=== PATIENT | female | born 1950 | race Caucasian/White ===

== ENCOUNTER 2019-11-18 14:36 | Emergency (ER) | payer BC, MEDICARE, SELFPAY ==
--- NOTE | ~2019-11-18 | XR_ITS ---
EXAMINATION: XR wrist RT min 3V INDICATION: Right wrist pain TECHNIQUE: Four views of the right wrist are obtained. COMPARISON: 11/03/2011 FINDINGS: The bones are osteopenic which limits sensitivity for fracture however no acute fracture is seen. There is a chronic ulnar styloid avulsion. Bone alignment is normal. Calcified atherosclerosis is noted. IMPRESSION: 1. No acute osseous abnormality, sensitivity limited by osteopenia. Reviewed, dictated and finalized at location A.
[2019-11-18 14:55] VITALS: BP 140/51; PULSE 76; RESP 18; TEMP 36.9; O2SAT 99
--- NOTE | 2019-11-18 15:11 | ED.GENADULT ---
HPI - General Adult General Chief complaint: Extremity Injury, Upper Stated complaint: right wrist injury Time Seen by Provider: 11/18/19 15:11 Source: patient and old records reviewed Mode of arrival: ambulatory Limitations: no limitations History of Present Illness HPI narrative: This is a 68 years old female presents to the office for an evaluation of right wrist injury two morning ago . She accidentally tripped over a fedex box and landed on her knees and right wrist. Complains of pain especially with movenment and touching. She is right-hand dominant. Denies any previous bone injury or trauma to her wrist however she does have a fistula on her right upper arm for dialysis. Denies head injury or trauma. She has been taking Tylenol for pain. Related Data Home Medications Medication Instructions Recorded Confirmed amlodipine [Norvasc] 5 mg PO DAILY 11/18/19 11/18/19 atorvastatin [Lipitor] 40 mg PO DAILY 11/18/19 11/18/19 cholecalciferol (vitamin D3) 1,250 mcg DAILY 11/18/19 11/18/19 [D3-50 Cholecalciferol] fluticasone propion-salmeterol 2 puff INHALATION BID 11/18/19 11/18/19 [Advair HFA] furosemide [Lasix] 80 mg PO DAILY 11/18/19 11/18/19 metoprolol tartrate [Lopressor] 25 mg PO BID 11/18/19 11/18/19 montelukast [Singulair] 10 mg PO DAILY 11/18/19 11/18/19 sertraline [Zoloft] 150 mg PO HS 11/18/19 11/18/19 trazodone 50 mg PO HS 11/18/19 11/18/19 vit B comp no.6-[id number]-N-biotin 1 tablet PO DAILY 11/18/19 11/18/19 [[facility] Rx] warfarin [Coumadin] 5 mg PO DAILY 11/18/19 11/18/19 Allergies Allergy/AdvReac Type Severity Reaction Status Date / Time Cephalosporins Allergy Severe Other Verified 07/29/19 08:19 estrogens, conjugated Allergy Severe CARDIAC Verified 07/29/19 08:19 [From Premarin] ARREST povidone-iodine Allergy Severe itching Verified 07/29/19 08:19 and rash prednisolone Allergy Severe Swelling Verified 07/29/19 08:19 of Lip/Tongue/Throat prednisone Allergy Severe Swelling Verified 07/29/19 08:19 of Lip/Tongue/Throat soap Allergy Severe ITCHING Verified 07/29/19 08:19 strawberry Allergy Severe Hives Verified 07/29/19 08:19 sumatriptan Allergy Severe Headache Verified 07/29/19 08:19 levofloxacin Allergy Intermediate Itching Verified 07/29/19 08:19 metronidazole Allergy Intermediate Itching Verified 07/29/19 08:19 Review of Systems Review of Systems: Narrative: CONSTITUTIONAL: Denies fever, chills ENT: Denies congestion CARDIOVASCULAR: Denies chest pain RESPIRATORY: Denies cough GASTROINTESTINAL: Denies nausea, vomiting SKIN: Reports skin abrasion on her right knee; which has been keep it clean and applied topical antibiotic ointment. TD is unknown. 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 in resuming hemodialysis mid 2017 Cataracts, bilateral COPD (chronic obstructive pulmonary disease) With PFTs 2014 demonstrating severe obstructive disease with acute bronchodilator response and moderate decreased DLCO with continued tobacco abuse CVA (cerebral vascular accident) Left frontal lobe Diabetes mellitus Diet-controlled Diastolic HF (heart failure) With grade 3-4 diastolic dysfunction on most recent echocardiogram June 2018 Glaucoma History of GI bleed April 2015 requiring multiple units of blood transfusion with History of heart attack Most recent stress test 06/11/2019 no evidence of reversible ischemia History of kidney stones Hx of hiatal hernia Hypercholesteremia Hypertension IBS (irritable bowel syndrome) Ischemic cardiomyopathy With EF as low a
[2019-11-18] MEDS: TETANUS,DIPHTHERIA,AC PERTUSSIS ADULT (0.5 ML) BOOSTRIX IM (15:37)
== END 2019-11-18 16:03 | disposition home or self-care (01) ==
PROVIDERS: Emergency Provider Nurse Practitioner; PCP Emergency Medicine
DX: S69.91XA Unspecified injury of right wrist, hand and finger(s), initial encounter (principal); Z23 Encounter for immunization; J44.9 Chronic obstructive pulmonary disease, unspecified; I50.30 Unspecified diastolic (congestive) heart failure; E11.42 Type 2 diabetes mellitus with diabetic polyneuropathy; H40.9 Unspecified glaucoma; I25.2 Old myocardial infarction; E78.00 Pure hypercholesterolemia, unspecified; I11.0 Hypertensive heart disease with heart failure; K58.9 Irritable bowel syndrome, unspecified; I25.5 Ischemic cardiomyopathy; Z87.442 Personal history of urinary calculi; Z86.711 Personal history of pulmonary embolism; Z86.73 Personal history of transient ischemic attack (TIA), and cerebral infarction without residual deficits; F17.210 Nicotine dependence, cigarettes, uncomplicated; F41.9 Anxiety disorder, unspecified; Z98.42 Cataract extraction status, left eye; Z98.41 Cataract extraction status, right eye; Z95.1 Presence of aortocoronary bypass graft; I25.10 Atherosclerotic heart disease of native coronary artery without angina pectoris; Z79.01 Long term (current) use of anticoagulants; W18.09XA Striking against other object with subsequent fall, initial encounter
CPT/HCPCS: 73110; 90471; 90715; 99213; G0463

== ENCOUNTER → 2020-03-14 12:35 | Outpatient (CLI) | payer BC, MEDICARE, SELFPAY ==
--- NOTE | ~2020-03-14 | CT_ITS ---
EXAMINATION: CT soft tissue neck wo con EXAM DATE: 03/14/2020 13:48 INDICATION: Localized right neck mass, lump. TECHNIQUE: Spiral CT of the neck was performed without contrast. Axial, coronal and sagittal images were reviewed. The dose-length product (DLP) for this examination was 346.53 mGy-cm. The exposure was tailored according to patient size (auto mA exposure control), and iterative reconstruction (ASIR ) was used as additional dose reduction technique. There is no prior study for comparison. Correlati on was made with CT cervical spine . FINDINGS: There is an externally placed marker along the right anterolateral aspect of the neck. The right sternocleidomastoid is deep to this. Patient does have sizable submandibular glands but there i s no focal density abnormality or mass suspected. These were partially imaged in 2018 and do not appe ar significantly changed. The thyroid gland is unremarkable. There is no cervical lymphadenopathy. There are no masses identified. The superior mediastinum is unremarkable. The airway is unrema rkable. Parapharyngeal and pre-glottic fat planes are preserved. 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 Sternotomy wires. Cardiomegaly. Patient has had bilateral ocul ar lens surgery. Visualized sinuses and mastoid air cells are well aerated. Lung apices are clear . There is cervical spondylosis. IMPRESSION: 1. Palpable abnormality could be patient's submandibular gland. 2. No suspicious neck findings. Reviewed, dictated and finalized at location B.
--- NOTE | ~2020-03-14 | XR_ITS ---
EXAMINATION: XR foot RT 2V EXAM DATE: 03/14/2020 12:56 INDICATION: pt stepped on glass 2 mths ago. has black raine between 4th and 5th digit of rt foot. te nderness, redness, pain radiates up lateral side of rt foot. TECHNIQUE: Frontal and lateral projections of the right foot. There is no prior study for compariso n. FINDINGS: There are no acute fractures or dislocations identified. There is no subcutaneous gas. Th ere are arterial calcifications, arteriosclerosis. There are no radiopaque foreign bodies. Sizable calcaneal posterior spur. Bones appear osteopenic. There are no bony erosions identified. IMPRESSION: Chronic findings as above. Reviewed, dictated and finalized at location B. IMPRESSION: Chronic findings as above.
== END ==
PROVIDERS: Visit Provider Emergency Medicine
DX: M79.671 Pain in right foot (principal); R22.1 Localized swelling, mass and lump, neck
CPT/HCPCS: 70490; 73620